=== PATIENT | male | born 1990 | race Caucasian/White ===

== ENCOUNTER 2016-12-03 03:51 | Emergency (ER) | payer OTHER ==
[2016-12-03 03:16] LABS: INFLUENZA A NEG (NEG); INFLUENZA B NEG (NEG)
[~2016-12-03 03:51] MED LIST: ACETAMINOPHEN PO; ALBUTEROL17 GM INH; ATARAX; BENTYL10 MG PO; BENTYL20 MG PO; CLONIDINE HCL0.1 MG PO; CONCERTA PO; FLEXERIL10 M1 PO; FLEXERIL10 MG PO; FLOMAX0.4 M1 PO; IBUPROFEN800 MG PO; KEFLEX500 M2 PO; LEVAQUIN PO; NO MEDICATIONS; NORCO 10-325 TA1 TAB PO; NORFLEX100 M1 PO; PERCOCET PO; PHENERGAN25 M1; PHENERGAN25 M1 DOB; PHENERGAN25 M1 PO; PRILOSEC20 MG PO; TYLENOL #3 PO; VOLTAREN50 MG PO; VOLTAREN75 MG PO; ZITHROMAX PO; ZOFRAN ODT4 MG PO; ZOFRAN PO
== END 2016-12-03 04:00 | disposition left against medical advice (07) ==
LOC: SED 03:51
PROVIDERS: Emergency Medicine
DX: Z53.21 Procedure and treatment not carried out due to patient leaving prior to being seen by health care provider (principal)
CPT/HCPCS: 87651; 87804; 87880

== ENCOUNTER 2017-06-16 13:13 | Emergency (ER) | payer SELFPAY ==
[2017-06-16] MEDS ORDERED: NO MEDICATIONS (19:49)
== END 2017-06-16 14:32 | disposition home or self-care (01) ==
LOC: SED 13:13
DX: T40.1X1A Poisoning by heroin, accidental (unintentional), initial encounter (principal); Z88.2 Allergy status to sulfonamides
CPT/HCPCS: 99283; J2310

== ENCOUNTER 2017-06-16 19:40 | Emergency (ER) | payer SELFPAY ==
[~2017-06-16] VITALS: Ht 167.6 cm; Wt 77.1 kg
[2017-06-16] MEDS ORDERED: NO MEDICATIONS (19:49)
== END 2017-06-16 21:45 | disposition home or self-care (01) ==
LOC: SED 19:40
DX: F11.129 Opioid abuse with intoxication, unspecified (principal); F41.9 Anxiety disorder, unspecified; F17.200 Nicotine dependence, unspecified, uncomplicated
CPT/HCPCS: 36415; 96374; 99283